=== PATIENT | female | born 1965 | race American Indian/Alaskan Native ===

== ENCOUNTER 2019-10-02 16:18 | Emergency (ER) | payer SELFPAY ==
[2019-10-02 16:54] VITALS: BP 153/76
[2019-10-02] MEDS ORDERED: KETOROLAC 30 MG/1 ML INJ IM ONE (19:37)
[2019-10-02] MEDS ORDERED: dexAMETHasone 20 MG/5 ML VIAL IM ONE (19:37)
--- NOTE | 2019-10-02 20:33 | Emergency Department Report ---
ED General Adult HPI - General Chief complaint: Extremity Injury, Upper Stated complaint: HAND/FINGERS/TOES NUMB Time Seen by Provider: 10/02/19 19:36 Source: patient Mode of arrival: Ambulatory Limitations: No Limitations - History of Present Illness Initial comments: Ms. Mirza is a 53-year-old female with a history of arthralgia. Presents of bilateral hand and foot pain. States aches for routine exacerbated by activity and movement pain is relieved by nothing tried. Patient states she is tolerable. Question referral PCP. There is no other complaint. Onset/Timin -: year(s) Location: upper extremity, lower extremity Radiation: non-radiation Severity scale (0 -10): 4 Quality: stabbing Consistency: intermittent Improves with: none Worsens with: movement Associated Symptoms: denies other symptoms Treatments Prior to Arrival: none - Related Data Previous Rx's Medication Instructions Recorded Last Taken Type Menthol/Camphor [[place] 1 applicatio TP QID PRN #1 tube 10/02/19 Unknown Rx Ointment] Naproxen 500 mg PO BID PRN #30 tablet 10/02/19 Unknown Rx predniSONE [Deltasone] 40 mg PO QDAY 5 Days #10 tab 10/02/19 Unknown Rx ED Review of Systems ROS: Stated complaint: HAND/FINGERS/TOES NUMB Other details as noted in HPI Constitutional: denies: chills, fever Eyes: denies: eye pain, eye discharge, vision change ENT: denies: ear pain, throat pain Respiratory: no symptoms reported Cardiovascular: denies: chest pain, palpitations Endocrine: no symptoms reported Gastrointestinal: denies: abdominal pain, nausea, diarrhea Genitourinary: denies: urgency, dysuria, discharge Musculoskeletal: arthralgia, myalgia Skin: denies: rash, lesions Neurological: denies: headache, weakness, paresthesias Psychiatric: denies: anxiety, depression Hematological/Lymphatic: denies: easy bleeding, easy bruising ED Past Medical Hx - Medications Home Medications: Home Medications Medication Instructions Recorded Confirmed Last Taken Type Menthol/Camphor [[place] 1 applicatio TP QID PRN #1 tube 10/02/19 Unknown Rx Ointment] Naproxen 500 mg PO BID PRN #30 tablet 10/02/19 Unknown Rx predniSONE [Deltasone] 40 mg PO QDAY 5 Days #10 tab 10/02/19 Unknown Rx ED Physical Exam - General Limitations: No Limitations General appearance: alert, in no apparent distress - Head Head exam: Present: atraumatic, normocephalic - Eye Eye exam: Present: normal appearance, PERRL, EOMI Pupils: Present: normal accommodation - ENT ENT exam: Present: mucous membranes moist - Neck Neck exam: Present: normal inspection, full ROM. Absent: tenderness, meningismus, lymphadenopathy, thyromegaly - Expanded Neck Exam Expanded Neck exam: Absent: tenderness, midline deformity, anterior neck swelling, thyroid mass, carotid bruit, tracheal deviation - Respiratory Respiratory exam: Present: normal lung sounds bilaterally. Absent: respiratory distress, wheezes, stridor, chest wall tenderness - Cardiovascular Cardiovascular Exam: Present: regular rate, normal rhythm, normal heart sounds. Absent: systolic murmur, diastolic murmur, rubs, gallop - GI/Abdominal GI/Abdominal exam: Present: soft, normal bowel sounds. Absent: distended, tenderness, bruit, hernia - Rectal Rectal exam: Present: deferred - Extremities Exam Extremities exam: Present: normal inspection, full ROM, normal capillary refill. Absent: tenderness, pedal edema, joint swelling - Back Exam Back exam: Present: normal inspection, full ROM. Absent: tenderness, CVA tenderness (R), CVA tenderness (L), muscle spasm, vertebral tenderness, rash noted - Neurological Exam Neurological exam: Present: alert, oriented X3, CN II-XII intact, normal gait, reflexes normal. Absent: motor sensory deficit - Expanded Neurological Exam Expanded Patient oriented to: Present: person, place, time Speech: Present: fluid speech Motor strength exam: RUE: 5, LUE: 5, RLE: 5, LLE: 5 Best Eye Response ([place]): (4) open spontaneously Best Motor Response ([place]): (6) obeys commands Best Verbal Response ([place]): (5) oriented [place] Total: 15 - Psychiatric Psychiatric exam: Present: normal affect, normal mood - Skin Skin exam: Present: warm, dry, intact, normal color. Absent: rash ED Course Vital Signs 10/02/19 16:52 Temperature 98.5 F Pulse Rate 67 Respiratory 18 Rate Blood Pressure 153/76 O2 Sat by Pulse 100 Oximetry ED Medical Decision Making - Medical Decision Making This is soft throughout plan, NSAIDs analgesic balm follow up with orthopedics in 2-3 days return to ED should symptoms worsen, exam is normal there is no tenderness there is no joint swelling no fever, , No numbness no tingling range of motion is intact. Critical care attestation.: If time is entered above; I have spent that time in minutes in the direct care of this critically ill patient, excluding procedure time. ED Disposition Clinical Impression: Arthralgia Qualifiers: Joint pain location: unspecified Qualified Code(s): M25.50 - Pain in unspecified joint Disposition: DC- TO HOME OR SELFCARE Is pt being admited?: No Does the pt Need Aspirin: No Condition: Stable Instructions: Arthralgia (ED) Prescriptions: predniSONE [Deltasone] 40 mg PO QDAY 5 Days #10 tab Naproxen 500 mg PO BID PRN #30 tablet PRN Reason: pain Menthol/Camphor [[place] Ointment] 1 applicatio TP QID PRN #1 tube PRN Reason: pain Referrals: [facility] [Outside] - 3-5 Days Forms: Work/School Release Form(ED) Time of Disposition: 20:59
== END 2019-10-02 20:40 | disposition home or self-care (01) ==
LOC: ED 16:18
DX: M79.642 Pain in left hand (principal); M79.641 Pain in right hand; M79.672 Pain in left foot; M79.671 Pain in right foot
CPT/HCPCS: 96372; 99281; J1100; J1885